=== PATIENT | male | born 1965 | race African-American/Black ===

== ENCOUNTER 2017-10-28 13:46 | Inpatient (IN) ==
[2017-10-28] MEDS ORDERED: ACETAMINOPHEN 325 MG TABLET PO PRN (15:34)
[2017-10-28] MEDS ORDERED: ONDANSETRON 4 MG/2 ML VIAL IV PRN (15:34)
[2017-10-28] MEDS ORDERED: MORPHINE 4 MG/1 ML VIAL IV PRN (15:34)
[2017-10-28 15:56] LABS: Basophils % 0.3 % (0.0-0.8); Eosinophils % 0.2 % (0.00-10.9); Hematocrit 37.3 VOL% (42.0-52.0); Immature Granulocytes % 0.7 %; Immature Granulocytes Absolute 0.06 #; Lymphocytes # 1.6 10*3/uL (1.4-4.0); Lymphocytes % 18.5 % (21.2-54.2); Mean Corpuscular HGB Conc 32.2 GM/DL (32-36); Mean Corpuscular Hemoglobin 23 PG (27-34); Mean Corpuscular Volume 71.2 FL (87-102); Mean Platelet Volume 8.8 FL (9.6-12.0); Monocytes # 0.8 10*3/uL (0.11-0.8); Monocytes % 8.6 % (1.7-12.7); Neutrophils # 6.4 10*3/uL (1.4-7.4); Neutrophils % 71.7 % (38.7-73.9); Platelet Count 393 T/CUMM (130-400); Red Blood Count 5.24 MC/CUMM (3.8-5.5); Red Cell Distribution Width 17.2 % (9.3-17.3); White Blood Count 8.9 T/CUMM (4-12)
[2017-10-28] MEDS ORDERED: SODIUM CHLORIDE 0.9% 1,000 ML IV SCH (16:00)
[2017-10-28] MEDS: LISINOPRIL/HCTZ 20-25 MG TABLET PO SCH (16:25)
[2017-10-28] MEDS ORDERED: SERTRALINE 50 MG TABLET PO SCH (16:30)
[2017-10-28 16:39] LABS: Albumin 3.4 G/DL (3.4-5.0); Bilirubin,Total 0.9 MG/DL (0.2-1.0); Calcium 8.2 MG/DL (8.5-10.1); Osmolality,Calculated 238.3 MOS/KG (273-304); Potassium 3.2 MMOL/L (3.5-5.1)
[2017-10-28] MEDS ORDERED: MAGNESIUM SULF RIDER 1 GM in PREMIX 1 EACH IV ONE (16:46)
[2017-10-28] MEDS ORDERED: HALOPERIDOL 5 MG/ML AMP IM PRN (17:02)
[2017-10-28] MEDS ORDERED: hydrALAZINE 20 MG/1 ML VIAL IV PRN (17:03)
[2017-10-28] MEDS ORDERED: MAGNESIUM SULF RIDER 2 GM in PREMIX 1 EACH IV PRN (17:29)
[2017-10-28] MEDS: FUROSEMIDE 40 MG/4 ML VIAL IV SCH (17:36)
[2017-10-28] MEDS: amLODIPine 5 MG TABLET PO SCH (17:36)
[2017-10-28 17:37] LABS: Apearance,Urine CLEAR (Clear); Bilirubin,Urine Negative (Negative); Blood, Urine Negative (Negative); Glucose,Urine (UA) Negative (Negative); Ketones,Urine 20 mg/dL (Negative); Nitrite,Urine Negative (Negative); Protein,Urine 30 MG/DL; RBC,Urine 2 /HPF (0-4); Urine Color Yellow (Yellow); Urine Urobilinogen < 2.0 EU/DL (0.2-1.0); WBC,Urine <1 /HPF (0-6)
[2017-10-28 17:43] LABS: Barbiturates Screen,Urine Negative (Negative); Benzodiazepines Screen,Urine Negative (Negative); Cannabinoid Screen,Urine Negative (Negative); Opiate Screen,Urine Negative (Negative); Phencyclidine Screen,Urine Negative (Negative)
[2017-10-28] MEDS: POTASSIUM CHLORIDE RIDER 10 MEQ in PREMIX 1 EACH IV PRN ×4 (17:49→21:07)
[2017-10-28 19:58] LABS: Calcium 8.9 MG/DL (8.5-10.1); Osmolality,Calculated 239.3 MOS/KG (273-304); Potassium 3.2 MMOL/L (3.5-5.1)
[2017-10-29 02:36] LABS: Calcium 8.2 MG/DL (8.5-10.1); Osmolality,Calculated 236.5 MOS/KG (273-304); Potassium 3.4 MMOL/L (3.5-5.1)
[2017-10-29] MEDS: SODIUM CHLORIDE 3% INJ 500 ML IV SCH ×2 (03:25→20:03)
[2017-10-29] MEDS ORDERED: POTASSIUM CHLORIDE INJ 30 MEQ in SODIUM CHLORIDE 0.9% 285 ML IV SCH (04:00)
[2017-10-29 05:39] LABS: Basophils % 0.3 % (0.0-0.8); Eosinophils % 0.2 % (0.00-10.9); Hematocrit 39.7 VOL% (42.0-52.0); Hemoglobin 13.2 GM/DL (14.0-18.0); Immature Granulocytes % 0.3 %; Immature Granulocytes Absolute 0.03 #; Lymphocytes # 1.6 10*3/uL (1.4-4.0); Lymphocytes % 16.7 % (21.2-54.2); Mean Corpuscular HGB Conc 33.2 GM/DL (32-36); Mean Corpuscular Hemoglobin 23 PG (27-34); Mean Corpuscular Volume 70.3 FL (87-102); Mean Platelet Volume 9.5 FL (9.6-12.0); Monocytes # 0.8 10*3/uL (0.11-0.8); Monocytes % 7.7 % (1.7-12.7); Neutrophils # 7.3 10*3/uL (1.4-7.4); Neutrophils % 74.8 % (38.7-73.9); Platelet Count 439 T/CUMM (130-400); Red Blood Count 5.65 MC/CUMM (3.8-5.5); Red Cell Distribution Width 18.1 % (9.3-17.3); White Blood Count 9.7 T/CUMM (4-12)
[2017-10-29 06:11] LABS: Osmolality,Calculated 239.3 MOS/KG (273-304); Potassium 3.4 MMOL/L (3.5-5.1); Risk Ratio 2.25; VLDL CHOLESTEROL 22.4 MG/DL
[2017-10-29 06:13] LABS: Calcium 8.6 MG/DL (8.5-10.1)
[2017-10-29] MEDS: FUROSEMIDE 40 MG/4 ML VIAL IV SCH ×2 (08:07→17:00)
[2017-10-29] MEDS: PANTOPRAZOLE 40 MG TABLET PO SCH (08:07)
[2017-10-29] MEDS: amLODIPine 5 MG TABLET PO SCH (08:07)
[2017-10-29] MEDS: LISINOPRIL/HCTZ 20-25 MG TABLET PO SCH (08:07)
[2017-10-29 09:41] LABS: Calcium 8.2 MG/DL (8.5-10.1); Osmolality,Calculated 244.9 MOS/KG (273-304); Potassium 3.6 MMOL/L (3.5-5.1)
[2017-10-29 12:38] LABS: Calcium 8.4 MG/DL (8.5-10.1); Osmolality,Calculated 243.9 MOS/KG (273-304); Potassium 3.2 MMOL/L (3.5-5.1)
[2017-10-29] MEDS: SERTRALINE 50 MG TABLET PO SCH (12:58)
[2017-10-29] MEDS: POTASSIUM CHLORIDE RIDER 10 MEQ in PREMIX 1 EACH IV PRN ×4 (20:02→23:06)
[2017-10-30 06:24] LABS: Basophils % 0.5 % (0.0-0.8); Eosinophils # 0.1 10*3/uL (0.0-0.87); Eosinophils % 1.1 % (0.00-10.9); Hematocrit 34.5 VOL% (42.0-52.0); Immature Granulocytes % 0.8 %; Immature Granulocytes Absolute 0.05 #; Lymphocytes # 1.8 10*3/uL (1.4-4.0); Lymphocytes % 27.8 % (21.2-54.2); Mean Corpuscular HGB Conc 33.3 GM/DL (32-36); Mean Corpuscular Hemoglobin 24 PG (27-34); Mean Corpuscular Volume 70.4 FL (87-102); Mean Platelet Volume 9.5 FL (9.6-12.0); Monocytes # 0.7 10*3/uL (0.11-0.8); Monocytes % 10.9 % (1.7-12.7); Neutrophils # 3.8 10*3/uL (1.4-7.4); Neutrophils % 58.9 % (38.7-73.9); Platelet Count 385 T/CUMM (130-400); Red Cell Distribution Width 18.3 % (9.3-17.3); White Blood Count 6.4 T/CUMM (4-12)
[2017-10-30 06:26] LABS: Hemoglobin 11.5 GM/DL (14.0-18.0)
[2017-10-30 06:52] LABS: Albumin 2.9 G/DL (3.4-5.0); Bilirubin,Total 0.8 MG/DL (0.2-1.0); Calcium 8.1 MG/DL (8.5-10.1); Osmolality,Calculated 267.2 MOS/KG (273-304); Potassium 3.9 MMOL/L (3.5-5.1)
[2017-10-30] MEDS: FUROSEMIDE 40 MG/4 ML VIAL IV SCH ×2 (09:10→16:48)
[2017-10-30] MEDS: LISINOPRIL/HCTZ 20-25 MG TABLET PO SCH (09:11)
[2017-10-30] MEDS: SERTRALINE 50 MG TABLET PO SCH (09:11)
[2017-10-30] MEDS: PANTOPRAZOLE 40 MG TABLET PO SCH (09:12)
[2017-10-30] MEDS: amLODIPine 5 MG TABLET PO SCH (09:12)
[2017-10-30] MEDS: SODIUM CHLORIDE 0.9% 1,000 ML IV SCH ×2 (11:48→23:00)
[2017-10-31 05:54] LABS: Basophils # 0.1 10*3/uL (0.0-0.2); Eosinophils # 0.1 10*3/uL (0.0-0.87); Eosinophils % 1.8 % (0.00-10.9); Hematocrit 34.3 VOL% (42.0-52.0); Hemoglobin 11.4 GM/DL (14.0-18.0); Immature Granulocytes % 0.5 %; Immature Granulocytes Absolute 0.03 #; Lymphocytes # 1.7 10*3/uL (1.4-4.0); Lymphocytes % 27.6 % (21.2-54.2); Mean Corpuscular HGB Conc 33.2 GM/DL (32-36); Mean Corpuscular Hemoglobin 24 PG (27-34); Mean Platelet Volume 9.1 FL (9.6-12.0); Monocytes # 0.6 10*3/uL (0.11-0.8); Monocytes % 9.4 % (1.7-12.7); Neutrophils # 3.7 10*3/uL (1.4-7.4); Neutrophils % 59.7 % (38.7-73.9); Platelet Count 383 T/CUMM (130-400); Red Blood Count 4.83 MC/CUMM (3.8-5.5); Red Cell Distribution Width 18.8 % (9.3-17.3); White Blood Count 6.2 T/CUMM (4-12)
[2017-10-31 06:04] LABS: Calcium 8.4 MG/DL (8.5-10.1); Osmolality,Calculated 266.2 MOS/KG (273-304); Potassium 3.4 MMOL/L (3.5-5.1)
[2017-10-31 07:23] VITALS: BP 135/84
[2017-10-31] MEDS: LISINOPRIL/HCTZ 20-25 MG TABLET PO SCH (08:42)
[2017-10-31] MEDS: PANTOPRAZOLE 40 MG TABLET PO SCH (08:43)
[2017-10-31] MEDS: amLODIPine 5 MG TABLET PO SCH (08:43)
[2017-10-31] MEDS: FUROSEMIDE 40 MG/4 ML VIAL IV SCH (08:43)
[2017-10-31] MEDS: SERTRALINE 50 MG TABLET PO SCH (08:43)
== END 2017-10-31 11:02 | disposition home or self-care (01) | DRG 641 ==
LOC: N.CVR 15:12 → SUATTDRO 15:12 → N.ICU 15:24 → N.5E 10-30 18:00
PROVIDERS: ADMIT Internal Medicine